=== PATIENT | male | born 1980 | race Two or more races ===

== ENCOUNTER → 2021-12-19 | Outpatient (CLI) | payer OTHER, BC ==
[~2021-12-19] MED LIST: AMLO1TAB25; FAMO20TA5; LOSA50TA28; MELO7.5T35; NEBI10TA; ROSU10TA6
== END ==
LOC: M LABSMTC 09:39
PROVIDERS: ATTEND Anesthesiology
DX: Z11.52 Encounter for screening for COVID-19 (principal); Z20.828 Contact with and (suspected) exposure to other viral communicable diseases

== ENCOUNTER 2021-12-24 12:48 | Day surgery (SDC) | payer BC ==
[~2021-12-24] VITALS: Ht 190.5 cm; Wt 104.3 kg
[~2021-12-24 12:48] MED LIST changes: +LR 1,000 ML IV ONE; +NS 1,000 ML IV ONE
[2021-12-24] MEDS ORDERED: propofoL 200 MG/20 ML VIAL As Ordered ONE ×2 (13:32→14:32)
[2021-12-24 15:10] VITALS: BP 129/64
== END 2021-12-24 15:14 | disposition home or self-care (01) ==
LOC: M SDC 12:48
PROVIDERS: ATTEND Internal Medicine Gastroenterology
DX: Z80.0 Family history of malignant neoplasm of digestive organs (principal); K64.8 Other hemorrhoids; K62.89 Other specified diseases of anus and rectum; I10 Essential (primary) hypertension; E78.5 Hyperlipidemia, unspecified; F17.210 Nicotine dependence, cigarettes, uncomplicated; Z79.899 Other long term (current) drug therapy